=== PATIENT | female | born 1970 | race Hispanic/Latino ===

== ENCOUNTER 2019-09-21 23:56 | Emergency (ER) | payer OTHER ==
[~2019-09-21] VITALS: Ht 165.1 cm; Wt 77.1 kg
[2019-09-22] MEDS ORDERED: KETOROLAC TROMETHAMINE 60 MG/2 ML VIAL ONE (00:20)
[2019-09-22] MEDS ORDERED: HYDROCODONE/APAP 5MG-325MG TAB ONE (00:21)
[2019-09-22] MEDS ORDERED: SILVER SULFADIAZINE 50GM CREAM TOP STA (00:28)
[2019-09-22] MEDS ORDERED: HYDROCODONE/APAP 5MG-325MG TAB PO ONE (00:45)
[2019-09-22] MEDS ORDERED: KETOROLAC TROMETHAMINE 60 MG/2 ML VIAL IM ONE (00:45)
[2019-09-22] MEDS ORDERED: KETOROLAC TROME10 MG PO (00:52)
[2019-09-22] MEDS ORDERED: ULTRAM50 MG PO (00:52)
[2019-09-22] MEDS ORDERED: SILVADENE20 GM TOP (00:54)
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
[2019-09-22 01:16] VITALS: BP 108/54
== END 2019-09-22 01:16 | disposition home or self-care (01) ==
LOC: FSED 09-22 01:15
DX: T24.212A Burn of second degree of left thigh, initial encounter (principal); T21.22XA Burn of second degree of abdominal wall, initial encounter; T21.29XA Burn of second degree of other site of trunk, initial encounter; X10.0XXA Contact with hot drinks, initial encounter
CPT/HCPCS: 16020; 96372; 99282; J1885

== ENCOUNTER 2021-02-16 02:37 | Emergency (ER) | payer OTHER ==
[~2021-02-16] VITALS: Ht 165.1 cm; Wt 83.5 kg
[~2021-02-16 02:37] MED LIST: KETOROLAC TROME10 MG PO; SILVADENE20 GM TOP; ULTRAM50 MG PO
[2021-02-16] MEDS ORDERED: ORPHENADRINE CITRATE 30 MG/ML VIAL IM ONE (03:00)
[2021-02-16] MEDS ORDERED: KETOROLAC TROMETHAMINE 60 MG/2 ML VIAL IM ONE (03:00)
== END 2021-02-16 04:10 | disposition home or self-care (01) ==
LOC: ER 02:45
DX: G44.209 Tension-type headache, unspecified, not intractable (principal); F41.9 Anxiety disorder, unspecified; E78.00 Pure hypercholesterolemia, unspecified
CPT/HCPCS: 99282; J1885; J2360